=== PATIENT | male | born 1960 | race Caucasian/White ===

== ENCOUNTER → 2018-05-26 | Outpatient (CLI) | payer OTHER ==
[~2018-05-26] MED LIST: CEPH500 PO; [UNRECOGNIZED DRUG - REMARK]
== END | disposition home or self-care (01) ==
LOC: LAB SHORT 13:54 → PLD 13:54
DX: D04.39 Carcinoma in situ of skin of other parts of face (principal); C44.319 Basal cell carcinoma of skin of other parts of face; D22.5 Melanocytic nevi of trunk
CPT/HCPCS: 88305

== ENCOUNTER → 2018-06-16 | Outpatient (CLI) | payer OTHER | END | disposition home or self-care (01) | LOC: LAB SHORT 07:45 → PLD 07:45 | DX: C44.319 Basal cell carcinoma of skin of other parts of face (principal); C44.41 Basal cell carcinoma of skin of scalp and neck | CPT/HCPCS: 88305 ==

== ENCOUNTER 2018-08-12 06:51 | Day surgery (SDC) | payer OTHER ==
[~2018-08-12] VITALS: Ht 167.6 cm; Wt 83.8 kg
[~2018-08-12 06:51] MED LIST changes: +ATOR40TA PO; +CENTRUM SILVER1 EAC4 PO; +Co Q-1010 MG PO; +NAPR500EC PO; +OMEPRAZOLE MAGN20 MG PO; +ZYRTEC10 M1 PO
== END 2018-08-12 08:58 | disposition home or self-care (01) ==
LOC: ORSCSDS 06:51
PROVIDERS: Student in an Organized Health Care Education/Training Program
PROC: 0DBH8ZX Excision of Cecum, Via Natural or Artificial Opening Endoscopic, Diagnostic (ICD-10-PCS; principal; 2018-08-12 08:00)
PROC: 0DBK8ZX Excision of Ascending Colon, Via Natural or Artificial Opening Endoscopic, Diagnostic (ICD-10-PCS; principal; 2018-08-12 08:00)
DX: Z12.11 Encounter for screening for malignant neoplasm of colon (principal); D12.2 Benign neoplasm of ascending colon; K57.30 Diverticulosis of large intestine without perforation or abscess without bleeding; K64.8 Other hemorrhoids; K64.4 Residual hemorrhoidal skin tags; K21.9 Gastro-esophageal reflux disease without esophagitis; G47.33 Obstructive sleep apnea (adult) (pediatric); Z79.899 Other long term (current) drug therapy
CPT/HCPCS: 88305; J2405; J2704; J7120

== ENCOUNTER → 2018-11-24 | Outpatient (CLI) | payer OTHER | END | disposition home or self-care (01) | LOC: PLD 09:05 → LAB SHORT 09:05 | DX: C44.519 Basal cell carcinoma of skin of other part of trunk (principal); C44.212 Basal cell carcinoma of skin of right ear and external auricular canal; L57.0 Actinic keratosis | CPT/HCPCS: 88305 ==

== ENCOUNTER → 2019-01-03 | Outpatient (CLI) | payer OTHER | END | disposition home or self-care (01) | LOC: LAB SHORT 08:10 → PLD 08:10 | DX: C44.212 Basal cell carcinoma of skin of right ear and external auricular canal (principal) | CPT/HCPCS: 88305 ==

== ENCOUNTER → 2020-09-20 | Outpatient (CLI) | payer OTHER | END | disposition home or self-care (01) | LOC: LAB SHORT 12:36 | DX: L82.1 Other seborrheic keratosis (principal) | CPT/HCPCS: 88304 ==

== ENCOUNTER 2020-12-20 06:07 | Day surgery (SDC) | payer OTHER ==
[~2020-12-20] VITALS: Ht 167.6 cm; Wt 89.0 kg
[~2020-12-20 06:07] MED LIST changes: +CLOBET30L TOP; +LORA10ER PO; +VITAMIN D2 PO
--- NOTE | 2020-12-20 06:36 | NUR ---
Ambulatory in Day Surgery Lungs clear T/O to Auscultation. Pre-Op teaching done. Pt verbalizes understanding. Patient States Post-Procedure ride home has been arranged. History, Chart, Medications and Allergies reviewed before start of procedure.
--- NOTE | 2020-12-20 10:04 | NUR ---
recieved patient and report on patient vss reminders to breathe deep
--- NOTE | 2020-12-20 10:42 | NUR ---
Discharge instructions reviewed with patient. Patient verbalizes understanding. Copy given to patient to take home. Patient States Post-Procedure ride home has been arranged. Discharged via wheelchair to private car for ride home.
== END 2020-12-20 22:57 | disposition home or self-care (01) ==
LOC: ORSCMMR 06:07 → ORD 07:30 → ORSCMMR 07:30
PROVIDERS: Surgery
PROC: 0YU50JZ Supplement Right Inguinal Region with Synthetic Substitute, Open Approach (ICD-10-PCS; principal; 2020-12-20 07:30)
DX: K40.90 Unilateral inguinal hernia, without obstruction or gangrene, not specified as recurrent (principal); G47.33 Obstructive sleep apnea (adult) (pediatric); K21.9 Gastro-esophageal reflux disease without esophagitis; Z79.899 Other long term (current) drug therapy
CPT/HCPCS: C1781; J0690; J1100; J1885; J2250; J2370; J2405; J2704; J3010; J7120

== ENCOUNTER → 2021-06-12 | Outpatient (CLI) | payer OTHER | END | disposition home or self-care (01) | LOC: LAB 08:09 → PLD 08:09 → LAB SHORT 08:09 | DX: L82.1 Other seborrheic keratosis (principal) | CPT/HCPCS: 88305 ==

== ENCOUNTER 2025-01-04 10:32 | Day surgery (SDC) | payer OTHER ==
[~2025-01-04] VITALS: Ht 167.6 cm; Wt 78.8 kg
[~2025-01-04 10:32] MED LIST changes: +AMOCLA875 PO; +ASCO500 PO; +HYDR1TAB94 PO; +Lidocaine 1%-Epineph 1:200000 30 ML SDV ONE; +ONDA4ODT MM; +ROSUVASTATIN CAL5 MG PO; -VITAMIN D2 PO; +VITAMIN D3 PO; +VOLTAREN ARTHRI20 GM; +ZYRTEC10 M2 PO
[2025-01-04] MEDS ORDERED: CeFAZolin Sodium 2,000 MG VIAL ONE (10:43)
[2025-01-04] MEDS ORDERED: IBU600 MG (10:58)
[2025-01-04] MEDS ORDERED: Midazolam HCl 1MG / ML 2ML Vial ONE (12:25)
[2025-01-04] MEDS ORDERED: Sugammadex Sodium 200 MG/2ML SDV (100 MG/ML) ONE (12:25)
[2025-01-04] MEDS ORDERED: FentaNYL Citrate 50 MCG/ML 2 ML Injection ONE ×2 (12:25→13:42)
[2025-01-04] MEDS ORDERED: Rocuronium Bromide 10 MG/ML 5ML Injection IV ONE (12:45)
[2025-01-04] MEDS ORDERED: Ondansetron HCl 2 MG / ML 2ML Vial ONE (12:46)
[2025-01-04] MEDS ORDERED: Dexamethasone Sod Phos 10 MG/ML 1ML VIAL ONE (12:46)
[2025-01-04] MEDS ORDERED: Phenylephrine HCl 100 MCG/ML-NS 10MLSYR (1MG/10ML) ONE (12:46)
[2025-01-04] MEDS ORDERED: Ketorolac Tromethamine 30mg Vial ONE (13:18)
[2025-01-04 13:52] VITALS: BP 97/66
--- NOTE | 2025-01-04 14:07 | NUR ---
01/04/25 Noa Bond PT UP TO CHAIR, PT INSTRUCTED TO BE WEIGHTBEARING TOLERATED WITH CRUTCHES OR WALKER. PT TOLERATED SNACK, STRING CHEESE AND CRACKERS AND FLUIDS WELL. PT RECIEVED 25MCG OF FENTANYL VIA IV, PUSHED SLOWLY. VSS. PT PLEASANT AND COOPERATIVE WITH CARE PROVIDED. PT ABLE TO MAKE NEEDS MEET.
== END 2025-01-04 14:32 | disposition home or self-care (01) ==
LOC: ORSCSDS 10:32
PROVIDERS: Orthopaedic Surgery
PROC: 0SBD4ZZ Excision of Left Knee Joint, Percutaneous Endoscopic Approach (ICD-10-PCS; principal; 2025-01-04 11:40)
DX: M23.204 Derangement of unspecified medial meniscus due to old tear or injury, left knee (principal); M94.262 Chondromalacia, left knee; E78.5 Hyperlipidemia, unspecified; K21.9 Gastro-esophageal reflux disease without esophagitis; Z79.899 Other long term (current) drug therapy
CPT/HCPCS: A9270; J0166; J0690; J1100; J1885; J2250; J2371; J2405; J2704; J3010; J7120